=== PATIENT | male | born 1980 | race Caucasian/White ===

== ENCOUNTER 2022-02-17 11:10 | Emergency (ER) | payer MEDICAID, SELFPAY ==
[2022-02-17 11:11] VITALS: BP 119/100; PULSE 89; RESP 16; TEMP 36.4; O2SAT 95; BMI 33.5
--- NOTE | 2022-02-17 11:49 | EKG12_ITS ---
Test Reason : MEDICAL CLEARANCE Blood Pressure : / mmHG Vent. Rate : 093 BPM Atrial Rate : 093 BPM P-R Int : 144 ms QRS Dur : 098 ms QT Int : 352 ms P-R-T Axes : 067 024 048 degrees QTc Int : 437 ms Normal sinus rhythm Normal ECG Confirmed by TRINY KWONG, RAZIA ([id number]), scientific publications editor REGINA JAVIER ([id number]) on 02/20/2022 1:44:42 PM Referred By: Confirmed By:RAZIA AGOSTO MD
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
--- NOTE | 2022-02-17 12:09 | ED.RN ---
meal tray order placed for patient.
[2022-02-17 12:14] LABS: Absolute Lymphocyte Count 1.81 X10^3/uL (0.83-4.51); Absolute Neutrophil Count 6.2 X10^3/uL (2.0-7.7); Basophil# 0.09 X10^3/uL; Eosinophil# 0.37 X10^3/uL; Hematocrit 50.1 % (40-54); Hemoglobin 16.9 g/dL (13.0-16.5); Lymphocyte # 1.81 X10^3/ul (0.83-4.51); Lymphocyte % 19.5 % (19-41); Mean Corp Hgb Conc 33.7 g/dL (32-36); Mean Corpuscular Hgb 28.3 pg (27.0-32.0); Mean Corpuscular Volume 83.8 fL (80-94); Mean Platelet Vol. 9.4 fl (6.2-12.0); Monocyte# 0.72 X10^3/uL; Monocyte% 7.8 % (0-10); NRBC Flagged by Analyzer 0 % (0-5); Neutrophil # 6.23 X10^3/uL (2.7-7.7); Neutrophil % 67.2 % (47-70); Platelet Count 283 K/mm3 (150-450); RBC Distribution Width CV 13.4 % (11.6-14.6); RBC Distribution Width SD 41.2 fl (35.1-43.9); Red Blood Count 5.98 M/mm3 (4.6-6.2); White Blood Count 9.3 K/mm3 (4.4-11.0)
[2022-02-17 12:30] LABS: ALB/GLOB Ratio 1.2 RATIO (0.9-2.4); AST(SGOT) 89 U/L (15-37); Alanine Aminotransfer ALT/SGPT 153 U/L (16-61); Albumin, Serum 3.8 g/dL (3.2-5.0); Alkaline Phosphatase 53 U/L (45-117); Anion Gap 4 (5-15); BUN 17 mg/dL (7-18); BUN/Creat Ratio 18.2 RATIO (10-20); Calcium,Total 9.2 mg/dL (8.5-10.1); Chloride 111 mmol/L (98-107); Creatinine, Serum 0.93 mg/dL (0.70-1.30); EST Glomerular Filtration Rate 95 mL/min (>60); Est Glom Filt Rate - Afr Amer 115 mL/min (>60); Estimated Creatinine Clearance 112.46 ml/min; Globulin 3.2 g/dL (2.2-4.2); Glucose 107 mg/dL (74-106); Potassium 4.6 mmol/L (3.5-5.1); Sodium Level 139 mmol/L (136-145)
[2022-02-17 12:43] LABS: Alcohol, Blood (Medical)-Serum < 3.0 mg/dL
[2022-02-17 12:55] LABS: Amphetamine Urine VISTA POSITIVE (<1000 ng/mL); Barbiturate Urine VISTA NEGATIVE (< 200 ng/mL); Benzodiazepine Urine VISTA NEGATIVE (< 200 ng/mL); Cocaine Urine VISTA NEGATIVE (< 300 ng/mL); Ecstacy Urine VISTA NEGATIVE (< 500 ng/mL); Methadone Urine VISTA NEGATIVE (< 300 ng/mL); PCP Urine VISTA NEGATIVE (< 25 ng/mL); THC Urine VISTA POSITIVE (< 50 ng/mL); Vista UDS pH Range 5
--- NOTE | 2022-02-17 13:51 | CM.ED ---
Addendum entered by Do Crane 02/17/22 19:42: SHANNEN contacted [facility] for update on placement for patient. Ida from [facility] Crisis informed this worker there are no beds available at [facility] and no beds currently at [facility], so a referral was sent to [facility] for review. Health Safety Manager updated. BONIFACIO Reddy Addendum entered by Do Crane 02/17/22 18:28: SW left for [facility] for an update regarding placement for patient. SHANNEN received a call back from Evy with [facility] and was informed a referral had been sent to [facility]. Evy explained due to it being a single case agreement, they are only able to send one referral out at a time. If [facility] declines, they will send a referral to [facility] next. GREY Bender updated. SHANNEN will continue to follow. BONIFACIO Reddy Original Note: SHANNEN Note SW contacted by Kaye from [facility] Crisis reporting patient had contacted their agency due to suicidal thoughts. Kaye explained patient reports having multiple plans including crashing his car or using a gun. Kaye reports they completed an evaluation on the patient and recommended he go into the ED for medical clearance before being admitting for inpatient psych. Kaye also explained patient has no insurance so they will work on placement. Plan: inpatient psych once medically clear BONIFACIO Reddy
[2022-02-17 16:30] VITALS: BP 135/91; PULSE 85; RESP 18; O2SAT 98
[2022-02-17] MEDS: LORazepam 1 MG Tablet PO (16:31)
[2022-02-17 19:47] VITALS: BP 134/89; PULSE 98; RESP 18; TEMP 36.5; O2SAT 97
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
[2022-02-17] MEDS: Ziprasidone IM 20 MG/ML VIAL IM (23:25)
--- NOTE | 2022-02-17 23:25 | ED.RN ---
Pt. requested update about his placement. This RN told patient he was pending at [facility]- pt. became agitated states I am not suicidal- this is fucking ridiculous. Pt. becomes agitated with girlfriend in room and states this is your fault, you should have just let me wait until I could get placement in that other place in April then I wouldnt be sitting here.. This RN educated pt. on pink slip process and that if patient tried to leave the police would bring him back. At this time, ming from security comes to bedside and pt. looks at security and laughs and states What, is this jose martin going to stop me? I'd break that mother fucharinder. This RN called for the the HRO at bedside who helped to deescalate patient. This RN offered pt. something to help him relax and sleep and pt. accepted. See MAR.
[2022-02-18] VITALS (8 sets, daily range): BP systolic 129; BP diastolic 88; PULSE 91; RESP 14–18; O2SAT 98–99
[2022-02-18 07:06] LABS: CPK Total, Creatine Kinase 60 U/L (39-308)
== END 2022-02-18 11:47 ==
PROVIDERS: Emergency Provider Emergency Medicine; Visit Provider Emergency Medicine
DX: R45.851 Suicidal ideations (principal); F15.90 Other stimulant use, unspecified, uncomplicated; F32.A Depression, unspecified
CPT/HCPCS: 80053; 80307; 82077; 82550; 84443; 85025; 87811; 93005; 96372; 99284; J3486